=== PATIENT | male | born 1995 | race Caucasian/White ===

== ENCOUNTER 2018-12-19 13:17 | Emergency (ER) | payer BC, MEDICAID ==
[~2018-12-19] VITALS: Ht 185.4 cm; Wt 89.8 kg
[2018-12-19 16:17] VITALS: BP 133/69
== END 2018-12-19 16:17 | disposition home or self-care (01) ==
LOC: ED 13:17
DX: Z11.3 Encounter for screening for infections with a predominantly sexual mode of transmission (principal)
CPT/HCPCS: 87491; 87591; J0696

== ENCOUNTER 2019-01-08 09:58 | Emergency (ER) | payer BC, MEDICAID ==
[~2019-01-08] VITALS: Ht 185.4 cm; Wt 88.5 kg
[2019-01-08 10:10] VITALS: Ht 185.4 cm; Wt 88.5 kg
[2019-01-08 12:57] VITALS: BP 122/66
== END 2019-01-08 12:57 | disposition home or self-care (01) ==
LOC: ED 09:58
DX: M54.5 Low back pain (principal); G89.29 Other chronic pain; V48.5XXA Car driver injured in noncollision transport accident in traffic accident, initial encounter; Y93.I9 Activity, other involving external motion; Y92.488 Other paved roadways as the place of occurrence of the external cause; Y99.8 Other external cause status